=== PATIENT | female | born 1985 | race Caucasian/White ===

== ENCOUNTER → 2023-12-16 13:52 | Outpatient (CLI) | payer OTHER, SELFPAY ==
--- NOTE | 2023-12-16 13:55 | DI.MRI.S_ITS ---
PROCEDURE: MR LUMBAR SPINE WO CON INDICATIONS: LOW BACK PAIN W/WORSENING B/L LOWER EXTREM PAIN TECHNIQUE: Noncontrast sagittal T1 spin echo and T2 fast echo, sagittal STIR, axial T1 and T2 fast spin echo through the lumbar spine. Axial and oblique coronal T1 spin echo and STIR through the sacrum. In cases with scoliosis, additional coronal T2 fast spin echo may be performed. COMPARISON: None. FINDINGS: Image quality: Excellent. Alignment and Curvature: There is normal bony alignment. Bone Marrow: Marrow is of normal overall signal. No acute vertebral body compression fractures. No sacral fractures. Spinal Cord: Conus medullaris terminates at the top of L2 level. Visualized cord demonstrates normal signal and size. Paraspinous Soft Tissues: No paravertebral masses. T12-L1: Normal appearance. L1-L2: Early facet hypertrophy. No canal stenosis or foraminal stenosis. L2-L3: Mild facet hypertrophy. No canal stenosis or foraminal stenosis. L3-L4: Mild facet hypertrophy. No canal stenosis or foraminal stenosis. L4-L5: Facet hypertrophy. No canal stenosis or foraminal stenosis. L5-S1: Disc bulge, mild facet hypertrophy. No canal stenosis or foraminal stenosis. Sacrum: Sacral neural foramina appear normal throughout. Superior to the piriformis muscles, the pre-plexal structures appear normal, including the lumbosacral trunk and S1 root. Just anterior to the piriformis muscles, the sacral plexus proper demonstrates normal morphology (lumbosacral trunk, S1 to S3 nerve roots). Inferior to the piriformis muscles, the sciatic nerves appear normal. IMPRESSION: 1. Relatively mild multilevel facet arthropathy. 2. No canal stenosis or foraminal stenosis. 3. Unremarkable sacrum. Dictated by: Apolinar Guillory M.D. on 12/18/2023 at 13:22 Approved by: Apolinar Guillory M.D. on 12/18/2023 at 13:28
== END ==
LOC: MRI 13:54
DX: M47.816 Spondylosis without myelopathy or radiculopathy, lumbar region (principal); M47.817 Spondylosis without myelopathy or radiculopathy, lumbosacral region; M54.50 Low back pain, unspecified
CPT/HCPCS: 72148